=== PATIENT | female | born 1940 | race Hispanic/Latino ===

== ENCOUNTER 2017-12-10 09:24 | Emergency (ER) | payer MEDICARE, BC ==
--- NOTE | 2017-12-10 13:34 | ED PDOC ---
Arrival/HPI - General Chief Complaint: Lower Extremity Problem/Injury Time Seen by Provider: 12/10/17 13:27 Historian: Patient - History of Present Illness Narrative History of Present Illness (Text): 12/10/17 13:29 77 year old female, past medical history of hypertension, hyperlipidemia, CHF, spinal stenosis, Aortic valve replacement (2017), presents to the emergency department with left lower extremity swelling since last night. Patient states she felt a burning pain in the lower extremity that woke her up at 3AM. She noticed the anterior leg was edematous, red, and painful. She applied bacitracin and wore socks. That morning the pain improved, however the swelling and redness persisted. At baseline, she has lower extremity swelling and redness secondary to dietary sodium intake as well as venous insufficiency, however the current symptoms were worse than before. Patient had difficulty with ambulation complaining the the foot was very stiff because of the swelling. She is currently on eliquis and aspirin however she did not take these medications today because she was told to hold them for 1 week prior to a procedure being done by Dr. Gurrola. Patient denies fever, chills, nausea, vomiting, shortness of breath, chest pain, palpitations, abdominal pain, or urinary symptoms. PMD: Dr. Qureshi Time/Duration: 4-6 hours Symptom Onset: Sudden Symptom Course: Unchanged Quality: Burning Severity Level: Mild Context: Home Past Medical History - Provider Review Nursing Documentation Reviewed: Yes - Infectious Disease Hx of Infectious Diseases: None - Cardiac Hx Cardiac Disorders: Yes Hx Congestive Heart Failure: Yes Hx Hypertension: Yes Hx Mitral Valve Prolapse: Yes Other/Comment: aortiv valve replacement - Pulmonary Hx Respiratory Disorders: No - Neurological Hx Neurological Disorder: No - HEENT Hx HEENT Disorder: No - Renal Hx Renal Disorder: No - Endocrine/Metabolic Hx Endocrine Disorders: No - Hematological/Oncological Hx Blood Disorders: No - Integumentary Hx Dermatological Disorder: No - Musculoskeletal/Rheumatological Hx Musculoskeletal Disorders: No Hx Falls: No - Gastrointestinal Hx Gastrointestinal Disorders: Yes Hx Gastrointestinal Ulcer: Yes - Genitourinary/Gynecological Hx Genitourinary Disorders: No - Psychiatric Hx Psychophysiologic Disorder: No Hx Substance Use: No - Surgical History Hx Gastric Bypass Surgery: Yes Hx Open Heart Surgery: Yes Hx Valve Replacement: Yes (aortic) - Anesthesia Hx Anesthesia: Yes Hx Anesthesia Reactions: No Hx Malignant Hyperthermia: No - Suicidal Assessment Feels Threatened In Home Enviroment: No Family/Social History - Physician Review Nursing Documentation Reviewed: Yes Family/Social History: Unknown Family HX Smoking Status: Never Smoked Hx Alcohol Use: No Hx Substance Use: No Allergies/Home Meds Allergies/Adverse Reactions: Allergies MDX Conjugated Estrogens [From Premarin] Allergy (Verified 10/26/14 18:08) RASH MDX Ezetimibe [From Vytorin] Allergy (Verified 10/26/14 18:08) RASH MDX PCN (penicillin) [PCN (penicillin)] Allergy (Verified 10/26/14 18:08) RASH MDX Simvastatin [From Vytorin] Allergy (Verified 10/26/14 18:08) RASH Home Medications: Home Meds Medication Instructions Recorded Confirmed Aspirin [Aspirin EC] 81 mg PO DAILY 10/26/14 10/31/14 Atorvastatin Calcium [Lipitor] 80 mg PO DAILY 10/26/14 10/31/14 Cholecalciferol 400 Intl Units 400 iu PO DAILY 10/26/14 10/31/14 [Vitamin D 400 Intl Units Tab] Esomeprazole Magnesium [Nexium] 40 mg PO DAILY 10/26/14 10/31/14 Furosemide 40 mg PO DAILY 10/26/14 10/31/14 Melatonin 5 mg PO DAILY 10/26/14 10/31/14 Methimazole [Tapazole] 5 mg PO DAILY 10/26/14 10/31/14 Sotalol [Sorine] 80 mg PO BID 10/29/14 10/31/14 Valsartan [Diovan] 320 mg PO DAILY 10/29/14 10/31/14 amLODIPine [Norvasc] 10 mg PO DAILY 10/29/14 10/31/14 Review of Systems - Physician Review All systems were reviewed & negative as marked: Yes - Review of Systems Constitutional: absent: Fevers Eyes: absent: Vision Changes ENT: absent: Hearing Changes Respiratory: absent: SOB, Cough Cardiovascular: Edema, Calf Pain. absent: Chest Pain, Palpitations, Orthopnea Gastrointestinal: absent: Abdominal Pain, Nausea, Vomiting Genitourinary Female: absent: Dysuria, Hematuria Musculoskeletal: absent: Arthralgias Skin: Rash, Cellulitis. absent: Ulcer Neurological: absent: Headache, Dizziness Endocrine: absent: Diaphoresis Physical Exam Vital Signs Reviewed: Yes Temperature: Afebrile Blood Pressure: Normal Pulse: Regular Respiratory Rate: Normal Appearance: Positive for: Well-Appearing, Non-Toxic, Comfortable Pain Distress: Mild Mental Status: Positive for: Alert and Oriented X 3 - Systems Exam Head: Present: Atraumatic, Normocephalic Pupils: Present: PERRL Extroacular Muscles: Present: EOMI Mouth: Present: Moist Mucous Membranes Respiratory/Chest: Present: Clear to Auscultation, Good Air Exchange. No: Respiratory Distress, Accessory Muscle Use Cardiovascular: Present: Regular Rate and Rhythm, Normal S1, S2. No: Murmurs Abdomen: No: Tenderness, Distention, Peritoneal Signs Upper Extremity: Present: Normal Inspection. No: Cyanosis, Edema Lower Extremity: Present: Edema, CALF TENDERNESS, NORMAL PULSES, Tenderness, Erythema, Temperature Abnormalties. No: Normal ROM Neurological: Present: GCS=15, CN II-XII Intact, Speech Normal Skin: Present: Rashes, Erythematous, Hot Psychiatric: Present: Alert, Oriented x 3, Normal Insight, Normal Concentration Medical Decision Making ED Course and Treatment: 12/10/17 11:36 77F, presents to the emergency department with lower extremity swelling. CBC CMP BNP Chest X-ray LE US Disposition/Present on Arrival - Present on Arrival History of DVT/PE: No History of Uncontrolled Diabetes: No Urinary Catheter: No History Surgical Site Infection Following: CABG - Mediastinitis - Disposition Referrals: Earnest Cedeno MD [Primary Care Provider] - Follow up with primary Forms: [employer] (Gabonese)
[2017-12-11 04:58] LABS: BLOOD UREA NITROGEN 21 mg/dL (7-21); GFR NON-AFRICAN AMERICAN > 60
[2017-12-11 04:59] LABS: ALB/GLOB RATIO 1.2 (1.1-1.8); ALBUMIN 3.7 g/dL (3.0-4.8); ALT/SGPT 27 U/L (7-56); AST/SGOT 27 U/L (14-36); B-TYPE NATRIURETIC PEPTIDE 1870 pg/mL (0-450); CALCIUM 9.5 mg/dL (8.4-10.5)
[2017-12-11 05:00] LABS: HEMOGLOBIN 11.6 g/dL (12.0-16.0); MEAN CELL VOLUME 86.5 fl (80.0-105.0); MEAN CORPUSCULAR HGB CONC 33.5 g/dl (31.0-37.0); MEAN PLATELET VOLUME 10.9 fl (7.0-11.0); RED CELL DISTRIBUTION WIDTH 13.4 % (11.5-14.5)
[2017-12-11 07:36] VITALS: BMI 39.8
--- NOTE | 2017-12-11 09:35 | US ---
PROCEDURE: Left lower extremity venous US HISTORY: Leg pain and swelling. Evaluate for DVT. PHYSICIAN(S): Brian Jorgensen MD. TECHNIQUE: Duplex sonography and color-flow Doppler with graded compression were used to evaluate the deep venous system of the left lower extremity. The exam is limited by edema. FINDINGS: The visualized deep venous system of the left lower extremity is sonographically normal and compressible. Normal wave forms and augmentation are seen. There is no sonographic evidence for deep venous thrombosis in the visualized segments of the left lower extremity. IMPRESSION: 1. No sonographic evidence for deep venous thrombosis in the visualized segments of the left lower extremity.
--- NOTE | 2017-12-12 21:33 | RAD ---
Date of service: 12/10/2017 PROCEDURE: CHEST RADIOGRAPH, 1 VIEW HISTORY: COMPARISON: 10/31/2014 FINDINGS: LUNGS: Clear. PLEURA: No pneumothorax or pleural fluid seen. CARDIOVASCULAR: Cardiomegaly-similar. Midline sternotomy [id number]. OSSEOUS STRUCTURES: Senescent changes VISUALIZED UPPER ABDOMEN: Normal. OTHER FINDINGS: None. IMPRESSION: No interval active disease.
== END 2017-12-10 14:00 | disposition home or self-care (01) ==
LOC: ED 09:24
DX: L03.116 Cellulitis of left lower limb (principal); I10 Essential (primary) hypertension; I50.9 Heart failure, unspecified; E78.5 Hyperlipidemia, unspecified

== ENCOUNTER 2018-02-26 06:29 | Day surgery (SDC) | payer MEDICARE, BC ==
[2017-12-11 07:36] VITALS: BMI 39.8
[2018-02-26] MEDS ORDERED: Midazolam 2 MG/2 ML VIAL ONE (08:15)
[2018-02-26] MEDS ORDERED: Propofol 10 mg/ml Inj (20 ML) ONE (08:21)
[2018-02-26] MEDS ORDERED: Lidocaine 1% Inj (20ml) ONE (08:22)
[2018-02-26] MEDS ORDERED: Sodium Chloride 0.9% 1,000 ML IV SCH (09:00)
[2018-02-26 09:44] VITALS: BP 172/70; PULSE 56; RESP 19; TEMP 97.9; O2SAT 98
== END 2018-02-26 10:12 | disposition home or self-care (01) ==
LOC: ENDO 06:29
PROVIDERS: ATTEND Specialist
DX: Z12.11 Encounter for screening for malignant neoplasm of colon (principal); D12.3 Benign neoplasm of transverse colon; K57.30 Diverticulosis of large intestine without perforation or abscess without bleeding; K64.8 Other hemorrhoids; I10 Essential (primary) hypertension; I25.10 Atherosclerotic heart disease of native coronary artery without angina pectoris
CPT/HCPCS: 45380; 88305; J2250; J2704; J3010; J7030; J7040